=== PATIENT | female | born 1945 | race Caucasian/White ===

== ENCOUNTER → 2018-03-06 09:46 | Outpatient (CLI) | payer MEDICARE, OTHER, SELFPAY ==
[2018-03-06 10:28] LABS: Add Manual Diff / Slide Review NO; Basophils Percent Auto 1.1 % (0-2); Eosinophils Percent Auto 2.5 % (2-4); Hematocrit 40.3 % (36-46); Hemoglobin 13.6 g/dL (12.0-16.0); Lymphocytes Percent Auto 28.6 % (25-40); Mean Corpuscular HGB Conc 33.7 % (30-36); Mean Corpuscular Hemoglobin 29.2 PG (26-34); Mean Corpuscular Volume 86.6 fL (80-100); Monocytes Percent Auto 7.7 % (3-14); Neutrophils Absolute Auto 3100 /uL (3000-5900); Neutrophils Percent Auto 60.1 % (50-75); Platelet Count 193 X10^3/uL (150-400); Red Blood Cell Count 4.65 X10^6/uL (4.0-5.2); Red Cell Distribution Width 13.8 % (11.6-14.8); White Blood Cell Count 5.2 X10^3/uL (4.5-11.0)
[2018-03-06 10:31] LABS: Alanine Aminotransferase 52 IU/L (9-52); Albumin 4.4 g/dL (3.5-5.0); Albumin Globulin Ratio 1.5 (1.0-2.8); Alkaline Phosphatase 89 U/L (38-126); Aspartate Aminotransferase 44 IU/L (14-36); BUN Creatinine Ratio 34.3 (6-22); Bilirubin Total 0.8 mg/dL (0.2-1.3); Blood Urea Nitrogen 24 mg/dL (7-17); Calcium 9.1 mg/dL (8.4-10.2); Carbon Dioxide 28 mmol/L (22-32); Chloride 101 mmol/L (98-107); Cholesterol 167 mg/dL (140-199); Estimated Glomerular Filt Rate > 60.0 mL/min (>60); Glucose 130 mg/dL (80-110); HDL Cholesterol 38 mg/dL (40-60); HEMOLYSIS < 15 (0-50); LDL Cholesterol Calculated 62 mg/dL (<100); Potassium 4.4 mmol/L (3.4-5.1); Sodium 138 mmol/L (137-145); Total Protein 7.4 g/dL (6.3-8.2); Triglycerides 336 mg/dL (35-150)
[2018-03-06 11:02] LABS: Carcinoembryonic Antigen 2.1 ng/mL (0.1-3.0)
[2018-03-07 05:05] LABS: Hemoglobin A1C% w Est Avg Glu 6.3 % (4.0-6.0)
== END ==
PROVIDERS: Visit Provider Internal Medicine Hematology & Oncology
DX: R73.03 Prediabetes (principal); Z85.3 Personal history of malignant neoplasm of breast; Z85.048 Personal history of other malignant neoplasm of rectum, rectosigmoid junction, and anus
CPT/HCPCS: 36415; 80053; 80061; 82378; 83036; 85025

== ENCOUNTER → 2018-03-08 14:30 | Oncology outpatient (ONC) | payer MEDICARE, OTHER, SELFPAY ==
[2018-03-01 13:42] VITALS: BP 133/76; PULSE 71; RESP 16; TEMP 36.7; O2SAT 98
[2018-03-01 13:43] VITALS: BP 134/88; PULSE 67; RESP 18; TEMP 36.2; O2SAT 96
--- NOTE | 2018-03-01 17:22 | ONC.CONS ---
History of Present Illness - Consult Narrative Narrative: 1. Remote history of early stage breast cancer 2. History of rectosigmoid adenocarcinoma Flor Rangel is a 72-year-old woman who recently moved permanently to [place] from [facility]. She has a history of early stage breast cancer in 1996 and more recent history of rectal cancer in 2008. She underwent treatment for both of these in [place], [place], and has not had recurrences. She would like to have a final oncology checkup at our clinic. She had early stage right-sided breast cancer in 1996, treated with right lumpectomy/axillary lymphadenectomy followed by adjuvant chemotherapy and radiotherapy. I do not have pathology from back then. She says she was offered tamoxifen but declined. She never had a breast cancer recurrence. She had screening bilateral mammogram yesterday in [place]. She had ipsilateral right breast biopsy from 10 o'clock periareolar lesion in 11/2012, which was negative for malignancy, and showed densely sclerotic benign breast tissue (post radiation changes). In 2008, she presented with rectal bleeding, and had a colonoscopy (or flex sig), which showed a tubular adenoma at sigmoid and moderately differentiated infiltrating adenocarcinoma at the rectal mass. She underwent low anterior resection of rectosigmoid colon with primary anastomosis on 04/08/2009. Tumor invaded but did not penetrate through muscularis, with 1/10 lymph nodes positive, pathologic stage T2 N1, stage IIIA. Postoperatively, she was given adjuvant 5FU chemoradiotherapy, and remains recurrence free. She indicates most recent surveillance colonoscopy was in 05/2017 and was negative. She was advised to have next colonoscopy in [address] abdomen and pelvis in 11/2015 was negative for evidence of recurrent disease. It showed stable postsurgical changes of distal colon/rectum, and stable hepatic steatosis. CEA was 2.9 in 10/2016. Her past medical history is otherwise unremarkable. It includes prediabetes, overweight, degenerative joint disease, history of migraines but not recently, history of hypertension but recently well controlled. Prior surgeries include right lumpectomy, appendectomy, cholecystectomy, and low anterior resection of rectal tumor. CC: Felicitas Durbin MD Home Medications and Allergies Home Medications Medication Instructions Recorded Confirmed Type ascorbic acid (vitamin C) [Vitamin 1,000 mg PO DAILY 03/01/18 03/01/18 History C] calcium carbonate [Calcium 600] 600 mg PO 03/01/18 History diphenoxylate-atropine 03/01/18 History hydrochlorothiazide 12.5 mg PO DAILY 03/01/18 03/01/18 History levothyroxine 75 mcg PO DAILY 03/01/18 03/01/18 History loperamide 2 mg PO BID 03/01/18 03/01/18 History magnesium 500 mg PO DAILY 03/01/18 03/01/18 History multivitamin 1 cap PO DAILY 03/01/18 03/01/18 History nabumetone 500 mg PO 03/01/18 History pyridoxine (vitamin B6) [Vitamin 250 mg PO DAILY 03/01/18 03/01/18 History B-6] sumatriptan succinate [Imitrex 03/01/18 History STATdose Pen] sumatriptan succinate [Imitrex] 50 mg PO Q2-4H PRN 03/01/18 03/01/18 History vitamin B complex 1 tab PO DAILY 03/01/18 03/01/18 History Allergies Allergy/AdvReac Type Severity Reaction Status Date / Time sesame oil AdvReac Unknown Verified 03/01/18 14:49 sesame seed AdvReac Unknown Verified 03/01/18 14:49 Review of Systems - Patient Self-Reported Symptoms SR Constitution: Fever SR ears, nose, mouth, throat issues: Ears ringing Exam Vital signs: Last Vital Signs Temp 97.1 F L 03/01/18 13:43 Pulse 67 03/01/18 13:43 Resp 18 03/01/18 13:43 BP 134/88 H 03/01/18 13:43 Pulse Ox 96 03/01/18 13:43 - Constitutional positive no acute distress - Routine HEENT Exam Head: Present: atraumatic - Routine Neck Exam Present: supple. Absent: lymphadenopathy, thyromegaly - Routine Chest/Breast/Axilla Exam Breast: Present: induration (Right breast post radiation firmness and deformity, augmented with implant, no concerning mass. Left breast augmented with implant, no palpable mass.) Axillae: Absent: lymphadenopathy - Routine Respiratory Exam Present: Clear to auscultation bilaterally - Routine Cardiovascular Exam Present: RRR - Routine Abdominal Exam Present: soft. Absent: tenderness, mass - Routine Extremities Exam Absent: edema Assessment and Plan (1) History of right breast cancer Current visit: Yes Status: Acute Right-sided breast cancer in 1996, treated with lumpectomy followed by adjuvant chemotherapy and radiotherapy, remains recurrence free. On exam she has post radiation changes of the right breast, without palpable mass. She has bilateral implants in place. Mammogram was done yesterday at [place]. Will follow-up on result. No further oncology follow-up is needed for this remote history. 03/01/18 17:37 03/01/18 17:40 03/01/18 17:40 (2) History of rectal cancer Current visit: Yes Status: Acute History of stage IIIA rectosigmoid adenocarcinoma in 2008, remains recurrence free. Surveillance colonoscopy was reportedly negative in 05/2017 and next one should be in 2021. No need for surveillance CT scans. She will return to clinic next week to review lab results, including CEA. Afterwards, this patient does not need routine oncology follow-up care. 03/01/18 17:38 03/01/18 17:30 03/01/18 17:41
--- NOTE | 2018-03-01 17:33 | P.CONONC_ITS ---
History of Present Illness - Consult Narrative Narrative: 1. Remote history of early stage breast cancer 2. History of rectosigmoid adenocarcinoma Flor Rangel is a 72-year-old woman who recently moved permanently to [place] from [facility]. She has a history of early stage breast cancer in 1996 and more recent history of rectal cancer in 2008. She underwent treatment for both of these in [place], [place], and has not had recurrences. She would like to have a final oncology checkup at our clinic. She had early stage right-sided breast cancer in 1996, treated with right lumpectomy/axillary lymphadenectomy followed by adjuvant chemotherapy and radiotherapy. I do not have pathology from back then. She says she was offered tamoxifen but declined. She never had a breast cancer recurrence. She had screening bilateral mammogram yesterday in [place]. She had ipsilateral right breast biopsy from 10 o'clock periareolar lesion in 11/2012, which was negative for malignancy, and showed densely sclerotic benign breast tissue ( post radiation changes). In 2008, she presented with rectal bleeding, and had a colonoscopy (or flex sig) , which showed a tubular adenoma at sigmoid and moderately differentiated infiltrating adenocarcinoma at the rectal mass. She underwent low anterior resection of rectosigmoid colon with primary anastomosis on 04/08/2009. Tumor invaded but did not penetrate through muscularis, with 1/10 lymph nodes positive , pathologic stage T2 N1, stage IIIA. Postoperatively, she was given adjuvant 5FU chemoradiotherapy, and remains recurrence free. She indicates most recent surveillance colonoscopy was in 05/2017 and was negative. She was advised to have next colonoscopy in [address] abdomen and pelvis in 11/2015 was negative for evidence of recurrent disease. It showed stable postsurgical changes of distal colon/rectum, and stable hepatic steatosis. CEA was 2.9 in . Her past medical history is otherwise unremarkable. It includes prediabetes, overweight, degenerative joint disease, history of migraines but not recently, history of hypertension but recently well controlled. Prior surgeries include right lumpectomy, appendectomy, cholecystectomy, and low anterior resection of rectal tumor. CC: Felicitas Durbin MD Home Medications and Allergies Home Medications Medication Instructions Recorded Confirmed Type ascorbic acid (vitamin C) [Vitamin 1,000 mg PO DAILY 03/01/18 03/01/18 History C] calcium carbonate [Calcium 600] 600 mg PO 03/01/18 History diphenoxylate-atropine 03/01/18 History hydrochlorothiazide 12.5 mg PO DAILY 03/01/18 03/01/18 History levothyroxine 75 mcg PO DAILY 03/01/18 03/01/18 History loperamide 2 mg PO BID 03/01/18 03/01/18 History magnesium 500 mg PO DAILY 03/01/18 03/01/18 History multivitamin 1 cap PO DAILY 03/01/18 03/01/18 History nabumetone 500 mg PO 03/01/18 History pyridoxine (vitamin B6) [Vitamin 250 mg PO DAILY 03/01/18 03/01/18 History B-6] sumatriptan succinate [Imitrex 03/01/18 History STATdose Pen] sumatriptan succinate [Imitrex] 50 mg PO Q2-4H PRN 03/01/18 03/01/18 History vitamin B complex 1 tab PO DAILY 03/01/18 03/01/18 History Allergies Allergy/AdvReac Type Severity Reaction Status Date / Time sesame oil AdvReac Unknown Verified 03/01/18 14:49 sesame seed AdvReac Unknown Verified 03/01/18 14:49 Review of Systems - Patient Self-Reported Symptoms SR Constitution: Fever SR ears, nose, mouth, throat issues: Ears ringing Exam Vital signs: Last Vital Signs Temp 97.1 F L 03/01/18 13:43 Pulse 67 03/01/18 13:43 Resp 18 03/01/18 13:43 BP 134/88 H 03/01/18 13:43 Pulse Ox 96 03/01/18 13:43 - Constitutional positive no acute distress - Routine HEENT Exam Head: Present: atraumatic - Routine Neck Exam Present: supple. Absent: lymphadenopathy, thyromegaly - Routine Chest/Breast/Axilla Exam Breast: Present: induration (Right breast post radiation firmness and deformity , augmented with implant, no concerning mass. Left breast augmented with implant, no palpable mass.) Axillae: Absent: lymphadenopathy - Routine Respiratory Exam Present: Clear to auscultation bilaterally - Routine Cardiovascular Exam Present: RRR - Routine Abdominal Exam Present: soft. Absent: tenderness, mass - Routine Extremities Exam Absent: edema Assessment and Plan (1) History of right breast cancer Current visit: Yes Status: Acute Right-sided breast cancer in 1996, treated with lumpectomy followed by adjuvant chemotherapy and radiotherapy, remains recurrence free. On exam she has post radiation changes of the right breast, without palpable mass. She has bilateral implants in place. Mammogram was done yesterday at [place]. Will follow-up on result. No further oncology follow-up is needed for this remote history. 03/01/18 17:37 03/01/18 17:40 03/01/18 17:40 (2) History of rectal cancer Current visit: Yes Status: Acute History of stage IIIA rectosigmoid adenocarcinoma in 2008, remains recurrence free. Surveillance colonoscopy was reportedly negative in 05/2017 and next one should be in 2021. No need for surveillance CT scans. She will return to clinic next week to review lab results, including CEA. Afterwards, this patient does not need routine oncology follow-up care. 03/01/18 17:38 03/01/18 17:30 03/01/18 17:41
--- NOTE | 2018-03-08 18:09 | ONC.PN ---
Assessment and Plan (1) History of right breast cancer Current visit: Yes Status: Acute 03/08/18 18:15 Remote history of breast cancer in 1996, remains recurrence free. Continue annual screening mammograms. (2) History of rectal cancer Current visit: Yes Status: Acute History of a stage IIIA rectosigmoid adenocarcinoma 2008, remains recurrence free. CEA is normal. Next surveillance colonoscopy should be done in about 05/2022. This patient does not need routine Oncology follow ups, but will be more than happy to see her in future if needed. 03/08/18 18:16 PN -Subjective Interval history: Flor Rangel is a 72-year-old woman who recently moved from [place] to [place], and was seen last week for oncology consultation, regarding history of breast cancer and rectosigmoid adenocarcinoma. Labs were done 2 days ago and she comes today for follow-up. She was diagnosed with early stage right breast cancer in 1996, treated with partial mastectomy/axillary lymphadenectomy, followed by adjuvant chemotherapy and radiotherapy. She was offered tamoxifen but declined. She never had a breast cancer recurrence. She had screening mammogram on 02/28/2018 in [place]. In 2008, she was diagnosed with stage III rectosigmoid adenocarcinoma. She underwent low anterior resection with primary anastomosis in 04/2009, pathologic T2 N1, stage IIIA, 08/16 lymph nodes positive. Postoperatively, she received a course of adjuvant 5 FU chemo radiotherapy, and has never had a recurrence of colon cancer either. Last colonoscopy in 05/2017 [place] was reportedly negative. Last CT abdomen and pelvis in 11/2015 was negative. CEA 2.1 on 03/06/2018. She reports feeling well and has no complaints. - Patient Self-Reported Symptoms SR Constitution: Fever SR ears, nose, mouth, throat issues: Ears ringing Home Medications and Allergies Home Medications Medication Instructions Recorded Confirmed Type ascorbic acid (vitamin C) [Vitamin 1,000 mg PO DAILY 03/01/18 03/01/18 History C] calcium carbonate [Calcium 600] 600 mg PO 03/01/18 History diphenoxylate-atropine 03/01/18 History hydrochlorothiazide 12.5 mg PO DAILY 03/01/18 03/01/18 History levothyroxine 75 mcg PO DAILY 03/01/18 03/01/18 History loperamide 2 mg PO BID 03/01/18 03/01/18 History magnesium 500 mg PO DAILY 03/01/18 03/01/18 History multivitamin 1 cap PO DAILY 03/01/18 03/01/18 History nabumetone 500 mg PO 03/01/18 History pyridoxine (vitamin B6) [Vitamin 250 mg PO DAILY 03/01/18 03/01/18 History B-6] sumatriptan succinate [Imitrex 03/01/18 History STATdose Pen] sumatriptan succinate [Imitrex] 50 mg PO Q2-4H PRN 03/01/18 03/01/18 History vitamin B complex 1 tab PO DAILY 03/01/18 03/01/18 History Allergies Allergy/AdvReac Type Severity Reaction Status Date / Time sesame oil AdvReac Unknown Verified 03/01/18 14:49 sesame seed AdvReac Unknown Verified 03/01/18 14:49 Exam Vital signs: Last Vital Signs Temp 97.1 F L 03/01/18 13:43 Pulse 67 03/01/18 13:43 Resp 18 03/01/18 13:43 BP 134/88 H 03/01/18 13:43 Pulse Ox 96 03/01/18 13:43
[2018-03-13 12:14] VITALS: BP 136/84; PULSE 66; RESP 16; TEMP 37.2; O2SAT 95
== END ==
PROVIDERS: Visit Provider Internal Medicine Hematology & Oncology
DX: Z85.3 Personal history of malignant neoplasm of breast (principal); Z85.048 Personal history of other malignant neoplasm of rectum, rectosigmoid junction, and anus
CPT/HCPCS: 99205; 99213; 99215

== ENCOUNTER 2018-05-16 15:26 | Emergency (ER) | payer MEDICARE, OTHER, SELFPAY ==
[2018-05-16 15:33] VITALS: BP 143/92; PULSE 95; RESP 18; TEMP 36.9; O2SAT 95
--- NOTE | 2018-05-16 16:03 | ED.FEMALEGU ---
HPI - Female Genitourinary General Chief complaint: Urogenital-Female Stated complaint: POSSIBLE KIDNEY STONE Time Seen by Provider: 05/16/18 16:03 Source: patient Mode of arrival: ambulatory Limitations: no limitations History of Present Illness HPI Narrative: 72-year-old female sent from her primary care doctor's office for concerns of a potential kidney stone. Patient which her primary doctor's office today for lower abdominal pain. She states that she has had a urinary tract infection each month for the past 3 months. She went to her doctor's office today and was diagnosed with the urinary tract infection based off of ?bacteria ?that was in the urine sample there. I did not have this for evaluation. She was not given any antibiotics. She was sent here to the emergency department for concerns of her lower abdominal and back pain for concerns of either pyelonephritis or a kidney stone. Patient states that she had some nausea and vomiting earlier today but that has since resolved. Did have a normal bowel movement this morning. No fevers. Does have a history of colon rectal cancer. Has had a partial colectomy with anastomosis but this was done several years ago. She was ?cleared? by her oncologist several months ago. Related Data Home Medications Medication Instructions Recorded Confirmed ascorbic acid (vitamin C) [Vitamin 1,000 mg PO DAILY 03/01/18 05/16/18 C] calcium carbonate [Calcium 600] 600 mg PO QAM 03/01/18 05/16/18 diphenoxylate-atropine 1 cap PO PRN PRN 03/01/18 05/16/18 loperamide 2 mg PO QAM PRN 03/01/18 05/16/18 magnesium 500 mg PO DAILY 03/01/18 05/16/18 multivitamin 1 cap PO DAILY 03/01/18 05/16/18 nabumetone 500 - 1,000 mg PO DAILY 03/01/18 05/16/18 pyridoxine (vitamin B6) [Vitamin 250 mg PO DAILY 03/01/18 05/16/18 B-6] vitamin B complex 1 tab PO DAILY 03/01/18 05/16/18 omeprazole 20 mg PO DAILY 03/13/18 05/16/18 cetirizine [Zyrtec] 10 mg PO DAILY 05/16/18 05/16/18 dicyclomine 10 mg PO TID PRN 05/16/18 05/16/18 levothyroxine 1 tab PO DAILY 05/16/18 05/16/18 sumatriptan succinate 50 mg PO Q2-4H PRN 05/16/18 05/16/18 Allergies Allergy/AdvReac Type Severity Reaction Status Date / Time sesame oil AdvReac Unknown Verified 03/01/18 14:49 sesame seed AdvReac Unknown Verified 03/01/18 14:49 Review of Systems Constitutional Denies fatigue and Denies fever(s) Cardiovascular Denies chest pain and Denies dyspnea Respiratory Denies dyspnea Gastrointestinal Gastrointestinal: Reports abdominal pain, Denies change in bowel habits, Reports nausea and Reports vomiting Genitourinary Denies dysuria, Reports flank pain, Denies urinary incontinence, Denies urinary hesitancy and Denies urinary urgency Musculoskeletal Denies myalgias and Denies arthralgias Integumentary/Breasts Denies lesions and Denies rash Endocrine Denies fatigue Hematologic/Lymphatic Denies easy bleeding and Denies easy bruising PFSH Medical History Colorectal cancer (Acute) Gastroesophageal reflux disease (Acute) Hypothyroid (Acute) Surgical History History of partial colectomy (Acute) Social History Smoking Status: Never smoker Exam Initial Vital Signs Initial Vital Signs: Vital Signs Temperature 98.5 F 05/16/18 15:33 Pulse Rate 95 H 05/16/18 15:33 Respiratory Rate 18 05/16/18 15:33 Blood Pressure 143/92 H 05/16/18 15:33 Pulse Oximetry 95 05/16/18 15:33 Const General: cooperative, healthy appearing, comfortable, well developed, well groomed and No acute distress Orientation: alert and oriented x3 HENWI Head: normal to inspection and normocephalic Resp Effort & Inspection: normal respiratory effort Auscultation: clear to auscultation bilaterally Cardio Rate: regular rate Rhythm: regular rhythm Pulses: radial pulses present GI Inspection: non-distended Palpation: soft, No firm, No guarding, No rigid and No tender Back/Spine/Pelvis Back: No CVA tenderness Skin Lesions: no lesions Rashes: no rashes Neuro General: alert, awake and oriented x3 Extrem General: normal to inspection and capillary refill normal Psych Appearance: grossly normal and well kempt Attitude: cooperative Course Orders Ordered: ED Orders 05/16/18 16:16 CT abdomen pelvis w con Stat 05/16/18 17:05 Complete Blood Count AUTO DIFF Stat Comprehensive Metabolic Panel Stat Lactate (Lactic Acid) Stat Lipase Stat 05/16/18 18:33 Urinalysis and Microscopic Stat Urine Culture Stat Vital Signs - 8 hr 05/16/18 15:33 05/16/18 19:05 Temperature 98.5 F Pulse Rate 95 H 79 Respiratory Rate 18 15 Blood Pressure 143/92 H Blood Pressure [Left Arm] 127/78 Pulse Oximetry 95 95 MDM - Female Genitourinary Lab Data Attestation: I reviewed the patient's lab results. Result diagrams: 05/16/18 17:05 05/16/18 17:05 Lab Results 05/16/18 05/16/18 05/16/18 Range/Units 17:05 17:05 17:05 WBC 13.1 H (4.5-11.0) X10^3/uL RBC 5.00 (4.0-5.2) X10^6/uL Hgb 14.6 (12.0-16.0) g/dL Hct 44.2 (36-46) % MCV 88.3 (80-100) fL MCH 29.2 (26-34) PG MCHC 33.0 (30-36) % RDW 14.4 (11.6-14.8) % Plt Count 214 (150-400) X10^3/uL Neut % (Auto) 88.2 H (50-75) % Lymph % (Auto) 7.8 L (25-40) % [place] % (Auto) 3.4 (3-14) % Eos % (Auto) 0.1 L (2-4) % Baso % (Auto) 0.5 (0-2) % Neut # (Auto) 60502 H (3458-7968) /uL Sodium 141 (137-145) mmol/L Potassium 4.0 (3.4-5.1) mmol/L Chloride 101 (98-107) mmol/L Carbon Dioxide 27 (22-32) mmol/L BUN 22 H (7-17) mg/dL Creatinine 0.70 (0.52-1.04) mg/dL Estimated GFR > 60.0 (>60) mL/min BUN/Creatinine Ratio 31.4 H (6-22) Glucose 149 H (80-110) mg/dL Lactate 1.9 (0.7-2.1) mmol/L Calcium 9.4 (8.4-10.2) mg/dL Total Bilirubin 0.8 (0.2-1.3) mg/dL AST 48 H (14-36) IU/L ALT 55 H (9-52) IU/L Alkaline Phosphatase 107 (38-126) U/L Total Protein 8.0 (6.3-8.2) g/dL Albumin 4.7 (3.5-5.0) g/dL Globulin 3.3 (1.7-4.1) g/dL Albumin/Globulin Ratio 1.4 (1.0-2.8) Lipase 34 (23-300) U/L Urine Color Urine Appearance Urine pH (4.5-8.0) Ur Specific [place] (1.000-1.035) Urine Protein (Negative) Urine Glucose (UA) (Normal) g/dL Urine Ketones (NEGATIVE) Urine Occult Blood (Negative) Urine Nitrate (Negative) Urine Bilirubin (NEGATIVE) Urine Urobilinogen (0.2) E.U./dL Ur Leukocyte Esterase (NEGATIVE) Urine RBC (0-5/HPF) Urine WBC (0-5/HPF) Ur Squamous Epith Cells Urine Bacteria (None) Ur Culture Indicated? Micro UA Comment 05/16/18 Range/Units 18:33 WBC (4.5-11.0) X10^3/uL RBC (4.0-5.2) X10^6/uL Hgb (12.0-16.0) g/dL Hct (36-46) % MCV (80-100) fL MCH (26-34) PG MCHC (30-36) % RDW (11.6-14.8) % Plt Count (150-400) X10^3/uL Neut % (Auto) (50-75) % Lymph % (Auto) (25-40) % [place] % (Auto) (3-14) % Eos % (Auto) (2-4) % Baso % (Auto) (0-2) % Neut # (Auto) (8216-1057) /uL Sodium (137-145) mmol/L Potassium (3.4-5.1) mmol/L Chloride (98-107) mmol/L Carbon Dioxide (22-32) mmol/L BUN (7-17) mg/dL Creatinine (0.52-1.04) mg/dL Estimated GFR (>60) mL/min BUN/Creatinine Ratio (6-22) Glucose (80-110) mg/dL Lactate (0.7-2.1) mmol/L Calcium (8.4-10.2) mg/dL Total Bilirubin (0.2-1.3) mg/dL AST (14-36) IU/L ALT (9-52) IU/L Alkaline Phosphatase (38-126) U/L Total Protein (6.3-8.2) g/dL Albumin (3.5-5.0) g/dL Globulin (1.7-4.1) g/dL Albumin/Globulin Ratio (1.0-2.8) Lipase (23-300) U/L Urine Color Yellow Urine Appearance Clear Urine pH 7.0 (4.5-8.0) Ur Specific [place] <=1.005 (1.000-1.035) Urine Protein Negative (Negative) Urine Glucose (UA) Negative (Normal) g/dL Urine Ketones Negative (NEGATIVE) Urine Occult Blood Trace-intact (Negative) Urine Nitrate Negative (Negative) Urine Bilirubin Negative (NEGATIVE) Urine Urobilinogen 0.2 (0.2) E.U./dL Ur Leukocyte Esterase Negative (NEGATIVE) Urine RBC 0-1/hpf (0-5/HPF) Urine WBC None seen (0-5/HPF) Ur Squamous Epith Cells 0-1 /hpf Urine Bacteria None seen (None) Ur Culture Indicated? Cult not indicated Micro UA Comment Not Reportable Imaging Data CT scan - abdomen: Radiologist's impression: [place] [address] CT Scan Report Signed Patient: Flor Rangel [facility]#: [id number] : 6Acct:[id number] Age/Sex: 72 / FDate of Service: 05/16/18 Loc: ED Accession Number: [id number] Procedure: CT abdomen pelvis w con Ordering Provider: Hua Sena D.O. PROCEDURE: CT ABDOMEN PELVIS W CON INDICATIONS: Left-sided abdominal pain TECHNIQUE: After the administration of intravenous contrast, 5 mm thick sections acquired from the diaphragm to the symphysis. 5 mm coronal and sagittal reformats were acquired. For radiation dose reduction, the following was used: automated exposure control, adjustment of mA and/or kV according to patient size. COMPARISON: None. FINDINGS: Image quality: Excellent. ABDOMEN: Lung bases: Lung bases are clear. Heart size is normal. Solid organs: Liver is diffusely hypodense suggesting fatty infiltration. Gallbladder is surgically absent. Biliary system is non dilated. Pancreas enhances normally. Spleen is normal in size and enhancement. No adrenal nodules. Kidneys demonstrate normal size and enhancement, without hydronephrosis. Peritoneum and bowel: Stomach is partially fluid filled. The proximal small bowel demonstrates normal caliber and wall thickness. The midportion of the small bowel is moderately dilated and filled with fluid and gas. There is likely a proximal transition point present near the umbilicus (series 2, image 52, and series 4, image 16), and a distal transition point within the pelvis (series 2, image 66 and series 4, image 49). The more distal ileum appears decompressed. The terminal ileum is dilated and filled with liquid stool. No mucosal thickening. The colon is filled with stool. Anastomotic sutures present in the rectosigmoid region. No free fluid or air. The appendix is not visualized; however there is no discrete right lower quadrant fluid or fat stranding to suggest acute appendicitis. Nodes and vessels: No retroperitoneal or mesenteric adenopathy by size criteria. Aorta and inferior vena cava are normal in size. There are scattered atheromatous calcifications throughout the aorta and iliac arteries bilaterally. Miscellaneous: There is diastasis of the rectus abdominis musculature. PELVIS: Genitourinary: Bladder wall thickness is normal. Uterus and ovaries are grossly unremarkable. Miscellaneous: No inguinal hernias or adenopathy. Bones: No suspicious bony lesions. No vertebral body compression fractures. IMPRESSION: 1. Dilated loops of small bowel within the lower abdomen suspicious for partial obstruction or ileus. Given a probable proximal and distal transition point, closed loop obstruction should be considered in the differential diagnosis. No mucosal thickening to suggest bowel ischemia. 2. The appendix is not visualized; however there are no ancillary findings to suggest acute appendicitis. These findings were discussed with Dr. Sena at 6:33 PM on 05/16/18. Dictated by: Emani Ramirez M.D. on 05/16/2018 at 18:20 Approved by: Emani Ramirez M.D. on 05/16/2018 at 18:33 MDM Narrative Medical decision making narrative: Patient is nontoxic appearing. Has a benign abdominal exam here in the emergency department. Is nontender. Has no rebound or guarding. Did tolerate oral intake here in the ER prior to the CT scan. She states she is feeling much better since arriving here in the ER. She states that her abdominal pain and back pain that she had earlier has greatly improved. She did have a bowel movement this morning. Is no longer nauseous. Does have an elevated white blood cell count however no signs of an infection. Her lactate is 1.9. She is afebrile. This could be demargination from vomiting. CT scan call from the radiologist is concerning for a closed loop bowel obstruction. The CT scan was done without oral contrast. The patient's physical exam is not consistent with a bowel obstruction. She has a very soft abdomen and is not vomiting. I discussed the case with Dr. Kinney with General surgery who states that if the patient is that asymptomatic and has a benign abdominal exam that we could admit her here to hospital this evening for further evaluation or she could be discharged home and follow up in the next couple days in the surgery clinic. After discussion with the patient she opted to be discharged home. I feel that given her clinical picture that this is not unreasonable. The patient was given follow-up instructions with regard to General surgery and the phone numbers to call. She was also given strict return precautions to include fevers, worsening abdominal pain, vomiting, unable to have bowel movements. Patient's urine sample today is not consistent with a urinary tract infection. The urine was cultured today. I feel that given her lack of urinary symptoms and the fact that she has been on antibiotics every month for the past 3 month and the non definitive urinalysis today that holding on antibiotics to prevent complication of her abdominal symptoms and also the prevention is C diff is warranted. Her exam today is not consistent with pyelonephritis. It is not consistent with kidney stone. I discussed this with the patient and she agrees with this. Patient expressed understanding and agreement with plan. Discharge Plan Departure Patient Disposition: Home Clinical Impression: Abdominal pain Instructions: DI for Abdominal Pain-Adult Activity Restrictions/Additional Instructions: I recommend that tomorrow you contact the [facility] at [phone]. I discussed her case today with Dr. Kinney. If you develop worsening abdominal pain, fevers, inability to tolerate oral intake or loss of the ability to have bowel movements you do need to return to the emergency department for further evaluation. Continue all of your medications as directed. Prescriptions: No Action nabumetone 500 mg Tablet 500 - 1,000 mg PO DAILY RF: 0 ascorbic acid (vitamin C) [Vitamin C] 1,000 mg Tablet 1,000 mg PO DAILY RF: 0 loperamide 2 mg Capsule 2 mg PO QAM PRN (Reason: Diarrhea) RF: 0 diphenoxylate-atropine 2.5-0.025 mg Tablet 1 cap PO PRN PRN (Reason: Diarrhea) RF: 0 calcium carbonate [Calcium 600] 600 mg calcium (1,500 mg) Tablet 600 mg PO QAM RF: 0 vitamin B complex Tablet 1 tab PO DAILY RF: 0 magnesium 250 mg Tablet 500 mg PO DAILY RF: 0 multivitamin Capsule 1 cap PO DAILY RF: 0 pyridoxine (vitamin B6) [Vitamin B-6] 250 mg Tablet 250 mg PO DAILY RF: 0 omeprazole 20 mg Tablet,Delayed Release (Dr/Ec) 20 mg PO DAILY RF: 0 levothyroxine 100 mcg tablet 1 tab PO DAILY RF: 0 cetirizine [Zyrtec] 10 mg Tablet 10 mg PO DAILY RF: 0 sumatriptan succinate 50 mg Tablet 50 mg PO Q2-4H PRN (Reason: Migraine Headache) RF: 0 dicyclomine 10 mg Capsule 10 mg PO TID PRN (Reason: cramping) RF: 0
--- NOTE | 2018-05-16 16:16 | DI.CT.S_ITS ---
PROCEDURE: CT ABDOMEN PELVIS W CON INDICATIONS: Left-sided abdominal pain TECHNIQUE: After the administration of intravenous contrast, 5 mm thick sections acquired from the diaphragm to the symphysis. 5 mm coronal and sagittal reformats were acquired. For radiation dose reduction, the following was used: automated exposure control, adjustment of mA and/or kV according to patient size. COMPARISON: None. FINDINGS: Image quality: Excellent. ABDOMEN: Lung bases: Lung bases are clear. Heart size is normal. Solid organs: Liver is diffusely hypodense suggesting fatty infiltration. Gallbladder is surgically absent. Biliary system is non dilated. Pancreas enhances normally. Spleen is normal in size and enhancement. No adrenal nodules. Kidneys demonstrate normal size and enhancement, without hydronephrosis. Peritoneum and bowel: Stomach is partially fluid filled. The proximal small bowel demonstrates normal caliber and wall thickness. The midportion of the small bowel is moderately dilated and filled with fluid and gas. There is likely a proximal transition point present near the umbilicus (series 2, image 52, and series 4, image 16), and a distal transition point within the pelvis (series 2, image 66 and series 4, image 49). The more distal ileum appears decompressed. The terminal ileum is dilated and filled with liquid stool. No mucosal thickening. The colon is filled with stool. Anastomotic sutures present in the rectosigmoid region. No free fluid or air. The appendix is not visualized; however there is no discrete right lower quadrant fluid or fat stranding to suggest acute appendicitis. Nodes and vessels: No retroperitoneal or mesenteric adenopathy by size criteria. Aorta and inferior vena cava are normal in size. There are scattered atheromatous calcifications throughout the aorta and iliac arteries bilaterally. Miscellaneous: There is diastasis of the rectus abdominis musculature. PELVIS: Genitourinary: Bladder wall thickness is normal. Uterus and ovaries are grossly unremarkable. Miscellaneous: No inguinal hernias or adenopathy. Bones: No suspicious bony lesions. No vertebral body compression fractures. IMPRESSION: 1. Dilated loops of small bowel within the lower abdomen suspicious for partial obstruction or ileus. Given a probable proximal and distal transition point, closed loop obstruction should be considered in the differential diagnosis. No mucosal thickening to suggest bowel ischemia. 2. The appendix is not visualized; however there are no ancillary findings to suggest acute appendicitis. These findings were discussed with Dr. Sena at 6:33 PM on 05/16/18. Dictated by: Emani Ramirez M.D. on 05/16/2018 at 18:20 Approved by: Emani Ramirez M.D. on 05/16/2018 at 18:33
[2018-05-16 17:22] LABS: Add Manual Diff / Slide Review NO; Basophils Percent Auto 0.5 % (0-2); Eosinophils Percent Auto 0.1 % (2-4); Hematocrit 44.2 % (36-46); Hemoglobin 14.6 g/dL (12.0-16.0); Lymphocytes Percent Auto 7.8 % (25-40); Mean Corpuscular Hemoglobin 29.2 PG (26-34); Mean Corpuscular Volume 88.3 fL (80-100); Monocytes Percent Auto 3.4 % (3-14); Neutrophils Absolute Auto 11500 /uL (3000-5900); Neutrophils Percent Auto 88.2 % (50-75); Platelet Count 214 X10^3/uL (150-400); Red Cell Distribution Width 14.4 % (11.6-14.8); White Blood Cell Count 13.1 X10^3/uL (4.5-11.0)
[2018-05-16 17:39] LABS: Alanine Aminotransferase 55 IU/L (9-52); Albumin 4.7 g/dL (3.5-5.0); Albumin Globulin Ratio 1.4 (1.0-2.8); Alkaline Phosphatase 107 U/L (38-126); Aspartate Aminotransferase 48 IU/L (14-36); BUN Creatinine Ratio 31.4 (6-22); Bilirubin Total 0.8 mg/dL (0.2-1.3); Blood Urea Nitrogen 22 mg/dL (7-17); Calcium 9.4 mg/dL (8.4-10.2); Carbon Dioxide 27 mmol/L (22-32); Chloride 101 mmol/L (98-107); Estimated Glomerular Filt Rate > 60.0 mL/min (>60); Globulin 3.3 g/dL (1.7-4.1); Glucose 149 mg/dL (80-110); HEMOLYSIS < 15 (0-50); Lipase 34 U/L (23-300); Sodium 141 mmol/L (137-145)
[2018-05-16 17:41] LABS: Lactate (Lactic Acid) 1.9 mmol/L (0.7-2.1)
[2018-05-16 18:39] LABS: Bacteria Urine None Seen; WBC Urine None Seen (0-5/HPF)
[2018-05-16 18:40] LABS: Appearance Urine UA CLEAR; Bilirubin Urine UA NEGATIVE (NEGATIVE); Color Urine UA YELLOW; Glucose Urine UA NEGATIVE (Normal); Ketones Urine UA NEGATIVE (NEGATIVE); Leukocyte Esterase Urine UA NEGATIVE (NEGATIVE); Nitrite Urine UA Negative (Negative); Occult Blood Urine UA TRACE-INTACT (Negative); Protein Urine UA NEGATIVE (Negative); Specific Gravity Urine UA <=1.005 (1.000-1.035); Urobilinogen Urine UA 0.2 E.U./dL (0.2)
[2018-05-16 19:02] LABS: RBC Urine 0-1/HPF (0-5/HPF)
[2018-05-16 19:03] LABS: Culture Indicated Urine Cult Not Indicated; Squamous Epithelial Cell Urine 0-1 /HPF
[2018-05-16 19:05] VITALS: BP 127/78; PULSE 79; RESP 15; O2SAT 95
[2018-05-16 20:01] VITALS: BP 128/82; PULSE 80; RESP 19; TEMP 36.6; O2SAT 95
== END 2018-05-16 20:02 | disposition home or self-care (01) ==
PROVIDERS: Emergency Provider Emergency Medicine; Family Provider Physician Assistant; PCP Physician Assistant
DX: R10.9 Unspecified abdominal pain (principal)
CPT/HCPCS: 36591; 74177; 80053; 81001; 83605; 83690; 85025; 87086; 99282; 99285; Q9967

== ENCOUNTER 2018-08-10 08:06 | Day surgery (SDC) | payer MEDICARE, OTHER, SELFPAY ==
[2018-08-08 12:15] VITALS: BMI 34.4
[2018-08-10] VITALS (9 sets, daily range): BP systolic 125–161; BP diastolic 75–95; PULSE 54–85; RESP 10–18; TEMP 36.1–36.9; O2SAT 91–97; BMI 34.4
--- NOTE | 2018-08-10 | DI.US.S_ITS ---
PROCEDURE: US PELVIC COMPLETE INDICATIONS: UNSUCESSFUL ATTEMPT OF D AND C IN THE OR TECHNIQUE: Real-time scanning was performed of the pelvic organs, with image documentation. Additional endovaginal scanning was necessary due to incomplete visualization of the adnexal and endometrial structures by transabdominal scanning. COMPARISON: [facility], US, US PELVIC COMPLETE, 07/10/2018, 12:50. [facility], CT, CT ABDOMEN PELVIS W CON, 05/16/2018, 17:47. FINDINGS: Transabdominal scanning: Limited scanning through the kidneys shows no hydronephrosis. No pathologic free abdominal or pelvic fluid. Endovaginal scanning: Uterus: Uterus is normal in size at 6.2 x 3.4 x 3.9 cm. The endometrium measures 3 mm in combined thickness. Along the anterior wall of the uterus, there is an ovoid isoechoic structure with a peripheral area of decreased echogenicity that measures 1.2 x 1.0 x 1.3 cm and demonstrates a single source of the vascularity extending into this region. The structure exerts mass effect on the adjacent endometrium. No additional abnormalities of the uterus are evident. The cervix is unremarkable. Ovaries: The right ovary is not definitely seen. No right adnexal abnormality is identified. The left ovary measures 1.8 x 1.5 x 2.1 cm and is normal in size without cystic or solid mass. Left ovarian follicle is identified that measures up to 1.3 cm in diameter. IMPRESSION: 1. Endometrial polyp versus submucosal fibroid is noted to exert mass effect on the endometrium. A saline infusion hysterosonogram would be helpful for better characterization. 2. Unremarkable left ovary. The right ovary was not definitely seen. Dictated by: Marbin Goldberg M.D. on 08/10/2018 at 10:52 Approved by: Marbin Goldberg M.D. on 08/10/2018 at 11:16
--- NOTE | 2018-08-10 | PATH_ITS ---
[facility] Accession Number: [id number] . 01 Material submitted: . ENDOCERVICAL CURETTINGS . 02 Diagnosis: Endocervical Curettings: Superficial, detached fragments of atypical glandular cells; please see comment. MRV/08/16/2018 . 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 However, there is no stroma to assess for invasion or for definitive architectural features. . This case was reviewed by gynecologic pathologist, Dr. Shaina Stoddard, who prvided the interpretation. . 02 Electronically signed: . Carlota Soria MD, Pathologist NPI- [id number] . 01 Gross description: . Received one formalin-filled container labeled with the patient's name and labeled endocervical curettings. The specimen consists of a less than 0.25 cc aggregate of mucoid material and blood, which is filtered, wrapped, and entirely submitted in one cassette. ([id number]) /FRR . 02 Pathologist provided ICD-10: N85.00 . 02 CPT . 173266 Performed at: 01 [facility] [address], [place], [place] [id number] MD Jaden Cadena MD Phone: [phone] Performed at: 02 [facility] [address] [place], [place] [id number] MD Deepthi Good MD Phone: [phone]
--- NOTE | 2018-08-10 08:45 | PM.PREOP ---
Pre-operative Note Interval Note History & Physical reviewed/Exam performed by Physician: Yes Changes to H&P: No
[2018-08-10] MEDS: LACTATED RINGERS 1,000 ML 42 ML IV (08:50)
--- NOTE | 2018-08-10 09:08 | PM.HP.1 ---
History of Present Illness Date Patient Seen: 08/10/18 Time Patient Seen: 09:08 Chief complaint: d&c hysteroscopy [id number] Narrative: Patient is a 73-year-old with postmenopausal bleeding and MACARENA on PAP. Patient had a biopsy of the cervix which showed adenocarcinoma but was unclear if it was coming from the endocervix or the endometrium. She had cervical stenosis and definitive biopsies were difficult in the office. She presents today for a fractional D&C hysteroscopy Patient History Medical History Colorectal cancer (Acute) DJD (degenerative joint disease) (Acute) Gastroesophageal reflux disease (Acute) Hepatic steatosis (Acute) History of migraine (Acute) Hypothyroid (Acute) Overweight (Acute) Prediabetes (Acute) Surgical History History of appendectomy (Acute) History of cholecystectomy (Acute) History of colonoscopy (Acute) History of partial colectomy (Acute ~04/08/09) Status post right breast lumpectomy (Acute ~1996) Family & Social History Social History: household members spouse Tobacco & Substance use: Smoking Status Never smoker alcohol intake frequency holiday/special occasion Substance Use Type does not use Meds Home Medications Medication Instructions Recorded Confirmed Type ascorbic acid (vitamin C) [Vitamin 1,000 mg PO DAILY 03/01/18 08/10/18 History C] calcium carbonate [Calcium 600] 600 mg PO QAM 03/01/18 08/10/18 History diphenoxylate-atropine 1 cap PO PRN PRN 03/01/18 08/10/18 History loperamide 2 mg PO QAM PRN 03/01/18 08/10/18 History magnesium 500 mg PO DAILY 03/01/18 08/10/18 History multivitamin 1 cap PO DAILY 03/01/18 08/10/18 History nabumetone 500 - 1,000 mg PO DAILY 03/01/18 08/10/18 History pyridoxine (vitamin B6) [Vitamin 250 mg PO DAILY 03/01/18 08/10/18 History B-6] vitamin B complex 1 tab PO DAILY 03/01/18 08/10/18 History omeprazole 20 mg PO DAILY 03/13/18 08/10/18 History cetirizine [Zyrtec] 10 mg PO DAILY 05/16/18 08/10/18 History dicyclomine 10 mg PO TID PRN 05/16/18 08/10/18 History levothyroxine 1 tab PO DAILY 05/16/18 08/10/18 History sumatriptan succinate 50 mg PO Q2-4H PRN 05/16/18 08/10/18 History multivitamin 1 tab PO DAILY 08/08/18 08/10/18 History Allergies Allergy/AdvReac Type Severity Reaction Status Date / Time sesame oil AdvReac Mild Verified 08/10/18 08:29 sesame seed AdvReac Mild Verified 08/10/18 08:29 Exam Vital Signs (past 8 hours): - 08/10/18 08:31 Temperature 97.1 F L Pulse Rate 71 Respiratory Rate 15 Blood Pressure 149/90 H Pulse Oximetry 94 Oxygen Delivery Method Room Air Narrative Exam Narrative: HEENT: No thyromegaly, no anterior cervical or supraclavicular lymphadenopathy. Lungs:Clear to auscultation bilaterally, no wheezes. Cardiovascular: Regular rate and rhythm, no murmurs, rubs, or gallops. Abdomen: No scars. No hepatosplenomegaly. No masses palpable. External genitalia: Normal Vagina: Small amount of blood Cervix: Stenotic Bimanual exam: 6 Week size uterus. Mobile. Rectal: No masses. Assessment & Plan (1) Postmenopausal postcoital bleeding: Current visit: Yes Status: Acute (2) Cervical stenosis (uterine cervix): Current visit: Yes Status: Acute (3) Adenocarcinoma: Current visit: Yes Status: Acute Plan: Assessment/Plan Narrative: Assessment: Patient is a 73-year-old with MACARENA on Pap, postmenopausal bleeding, and cervical stenosis Cervical biopsy in the office suspicious for adenocarcinoma but unknown origin Plan: Fractional D&C The risks, benefits, and alternatives to the procedure were explained to the patient. The risks including bleeding, infection, and uterine perforation. She understands these risks and agrees to proceed. A full PAR-Q was held and consent form was signed.
--- NOTE | 2018-08-10 09:22 | SUR.OPER ---
Lithotomy on padded OR bed, head on pillow, arms secured on padded arm boards at <90 degrees abduction. Legs secured in padded yellow fins stirrups.
--- NOTE | 2018-08-10 10:27 | SUR.PHASEII ---
Dr. Hansen into see pt and she ordered an ultra sound . Will call and see if it can be done. If it can not Dr. Hansen will do the ultra sound after she is done with surgery. Patient is aware of this and is agreement to plan of care. pt sitting up with tea. No complaints voiced.
--- NOTE | 2018-08-10 10:53 | SUR.PHASEII ---
Pt getting ultra sound at present time. Will ask Dr. Hansen if she needs pt to stay for results.
--- NOTE | 2018-09-03 08:02 | P.OP_ITS ---
Operative Date/Time/Diagnoses Date of procedure: 08/10/18 Time of procedure: 10:00 Pre-op diagnosis: Adenocarcinoma of either the cervix or uterus by biopsy Postmenopausal bleeding Cervical stenosis MACARENA on PAP Post-op diagnosis: same Procedure: Procedures Operation Date: 08/10/18 09:15 Actual Procedures Side Surgeon uzair Hansen MD Indications: Adenocarcinoma of the cervix or uterus by biopsy Postmenopausal bleeding Cervical stenosis MACARENA on PAP Surgeon: Gayle Hansen Anesthesia Type: General (LMA) Operative Notes Findings: 6 week size uterus Cervical stenosis Closure Type: not applicable Specimen(s): other (Endocervical curettings) Estimated blood loss (mL): 10 Blood products transfused: none Procedure in detail: After informed consent was obtained, patient was taken to the operating room where she was placed in the dorsal supine position. After adequate LMA general anesthesia was achieved, she was placed in the dorsal lithotomy position, and prepped and draped in the usual sterile fashion. A time- out was performed. A bivalve speculum was placed into the vagina, and the anterior lip of the cervix grasped with a single-tooth tenaculum. Using the small gold handle dilators, an attempt was made to dilate the cervix but was unable. A vigorous endocervical curettage was performed. Endometrial curettings were not able to be obtained. The single-tooth tenaculum was removed from the anterior lip of the cervix. The bivalve speculum was removed from the vagina. Sponge, lap, and instrument counts were correct x2. The patient tolerated the procedure well, and was taken to PACU in stable condition. Complications: none Post-operative Condition: stable Disposition: PACU Plan for aftercare: Home after recovery
== END 2018-08-10 11:22 | disposition home or self-care (01) ==
PROVIDERS: PCP Physician Assistant; Visit Provider Obstetrics & Gynecology
PROC: 0UDB8ZZ Extraction of Endometrium, Via Natural or Artificial Opening Endoscopic (ICD-10-PCS; CPT 58558; principal; 2018-08-10 09:15)
DX: N85.00 Endometrial hyperplasia, unspecified (principal); N88.2 Stricture and stenosis of cervix uteri; C80.1 Malignant (primary) neoplasm, unspecified; E03.9 Hypothyroidism, unspecified
CPT/HCPCS: 57505; 76830; 76856; 88305; J1100; J2250; J2405; J2704; J3010

== ENCOUNTER → 2020-08-13 14:54 | Outpatient (CLI) | payer MEDICARE, OTHER, SELFPAY ==
[2020-08-13 16:44] LABS: Cancer Antigen 125 < 5.5 U/mL (0-35)
== END ==
PROVIDERS: PCP Internal Medicine; Referring Provider Obstetrics & Gynecology; Visit Provider Obstetrics & Gynecology
DX: C55 Malignant neoplasm of uterus, part unspecified (principal); C80.1 Malignant (primary) neoplasm, unspecified
CPT/HCPCS: 36415; 86304

== ENCOUNTER → 2020-08-28 10:20 | Outpatient (CLI) | payer MEDICARE, OTHER, SELFPAY ==
[2020-08-28 11:10] LABS: COVID19 -Nasal RAPID Negative (Negative)
== END ==
PROVIDERS: PCP Internal Medicine; Visit Provider Specialist
DX: Z20.822 Contact with and (suspected) exposure to COVID-19 (principal)
CPT/HCPCS: 87635; C9803

== ENCOUNTER 2020-08-31 06:32 | Day surgery (SDC) | payer MEDICARE, OTHER, SELFPAY ==
[2020-08-31] VITALS (14 sets, daily range): BP systolic 118–140; BP diastolic 65–85; PULSE 59–77; RESP 10–17; TEMP 36.1–37; O2SAT 90–98; BMI 31.6
--- NOTE | 2020-08-31 | PATH_ITS ---
[facility] Accession Number: [id number] . 01 Material submitted: . abdomen - SKIN AND PERITONEUM OVER ABDOMINAL WALL HERNIA . 01 Diagnosis: Skin and Peritoneum, Over Abdominal Wall Hernia, Excision: Skin and subcutis with peritoneal tissue showing old hemorrhage, fibroplasia, chronic inflammation, and mild mesothelial hyperplasia. Negative for malignancy. MRV 09/02/2020 1510 Local . 01 Electronically signed: . Kourtney Ashraf MD, Pathologist NPI- [id number] . 01 Gross description: . The specimen is received in formalin, labeled skin and peritoneum over abdominal wall hernia and consists of multiple rueda-pink to pink-purple fragments of soft tissue and rueda skin measuring 10.0 x 7.5 x 4.0 cm in aggregate. Boiler Coverer Helper sections are submitted in cassettes A1-A2. ([id number]) /MRV 09/01/2020 1040 Local . 01 Pathologist provided ICD-10: K43.2 . 01 CPT . 978276 Performed at: 01 [facility] [address] [place] [address], [place], [place] [id number] MD Jaden Cadena MD Phone: [phone]
[2020-08-31] MEDS: ACETAMINOPHEN 325 MG TABLET 975 MG PO (07:28)
[2020-08-31] MEDS: LACTATED RINGERS 1,000 ML 42 ML IV ×2 (07:38→10:20)
--- NOTE | 2020-08-31 07:39 | PM.PREOP ---
Pre-operative Note COVID-19 COVID-19 status: Negative Result date/Date tested (Pos, Neg/Pending): 08/28/20 Interval Note History & Physical reviewed/Exam performed by Physician: Yes Changes to H&P: Yes H&P completed within 30 days and has changed as indicated here:: Patient has a history of seroma formation. Patient also had her uterine cancer treated in 2019, not 2018.
[2020-08-31] MEDS: CEFAZOLIN 2 GM/100 ML FROZ.PIGGY IV (08:05)
--- NOTE | 2020-08-31 08:07 | PM.OP.ENDO ---
Operative Date/Time/Diagnoses Date of procedure: 08/31/20 Time of procedure: 08:07 Pre-op diagnosis: dysphagia Post-op diagnosis: other (oral candidiasis) Procedure & Clinicians Study performed: Esophagoduodenoscopy Same procedure as scheduled: Yes Indications: 75-year-old man with dysphagia presents for EGD Surgeon: Gómez Lim Procedure Notes Findings: other findings (Oral candidiasis) Specimen(s): other (Duodenum) Complications: none Impression: Oral candidiasis Post-procedure Recommendations: Start medication(s) (Nystatin) Disposition: same day surgery
--- NOTE | 2020-08-31 08:20 | SUR.OPER ---
Supine on padded OR bed, head on pillow, arms secured on padded arm boards at <90 degrees abduction, legs uncrossed, safety belt at thigh, tape over blanket over lower legs.
[2020-08-31] MEDS: BUPIVACAINE 0.5% (PF) VIAL 30 ML INJ (08:25)
--- NOTE | 2020-08-31 11:15 | SUR.OPER ---
Sebas Edouard relief at 1115 to end of case
[2020-08-31] MEDS: fentaNYL 100 MCG/2 ML INJ IV ×3 (11:54→12:08)
--- NOTE | 2020-08-31 11:59 | SUR.PHASEI ---
Pt arrived, oral airway needed for patency, out now w/o incident. Pt not nauseated, c/o pain medicated with fentanyl and oxycodone.
--- NOTE | 2020-08-31 11:59 | SUR.PHASEI ---
O2 nasal cannula weaning down.
--- NOTE | 2020-08-31 12:01 | PM.OP.1 ---
Operative Date/Time/Diagnoses Date of procedure: 08/31/20 Time of procedure: 11:29 Pre-op diagnosis: Incisional ventral hernia. Post-op diagnosis: same Procedure & Clinicians Procedure: Repair with underlay and overlay of mesh. Same procedure as scheduled: Yes Indications: Symptomatic hernia for repair Surgeon: Fady Ricci Click Yes if Unassisted: Yes Anesthesia Type: General Operative Notes Findings: Large defect. Placed a 12 by 7.5 cm piece of oval mesh under the wound and a 3 x 6 in piece of mesh over it. Closure Type: primary Specimen(s): other (Due to her prior malignancies I did send her hernia sac.) Prosthetic devices, grafts, tissues, transplants, or devices: Mesh Estimated Blood Loss (mL): 150 Blood products transfused: none Procedure in detail: The patient is placed supine on the operating room table and underwent general endotracheal anesthesia. She was prepped and draped in the usual fashion. Elliptical incision was made over top of this hernia which included excision of the umbilicus. All of the skin was quite attenuated due to the large size of the hernia sac which protruded well out from the abdominal wall. I dissected the sac away from the subcu fat down the level the fascia. I incised the fascia at its edge. This proved more difficult than usual because the fascia itself while intact was attenuated. There also places probably because of her multiple incisions through this area where I could not separate the peritoneum from the overlying fascia and muscle. In any event I removed portions of the sac. I was able to dissect peritoneum off the abdominal wall in such a fashion that I could close the peritoneum. The fascial edges were cleared and a oval piece of 2 sided parietex mesh was placed under the fascia. U stitches were placed down through the overlying fascia down through mesh back up through mesh in up through fascia circumferentially. The material use was never 1 as a bone. The sutures were tied to snug the mesh up to the anterior abdominal wall. I then closed the midline with figure of 8 0 Ethibond sutures. Five to light waist piece of mesh overlying the fat tacked it down with interrupted 0 Ethibond sutures. 87 mm Saul-Cummings drain was placed through an inferior lateral stab wound. This was secured with a 3-0 nylon. The subQ was closed with interrupted 3-0 Vicryl and skin was closed a running 4-0 Vicryl subcuticular stitch and Steri-Strips. Skin protectant was placed on the skin prior to placing the Steri-Strips. Local anesthetic was infiltrated prior to closure of the skin layer. Complications: none Post-operative Condition: stable Disposition: PACU
[2020-08-31] MEDS: OXYCODONE IR 5 MG TABLET PO ×2 (12:09→13:05)
[2020-08-31] MEDS: LORazepam 2 MG/ML INJ 0.5 MG IV (13:38)
--- NOTE | 2020-08-31 13:38 | SUR.PHASEII ---
ABDOMINAL DRESSING DRY AND INTACT, VLADIMIR PATENT AND COMPRESSED, ABDOMINAL BINDER ON, ICE TO ABDOMEN MEDICATED FOR IM JUST SO ANXIOUS DENIED PAIN BUT STATES SHE JUST UNCOMFORTABLE TOLERATING SIPS OF WATER.
== END 2020-08-31 14:10 | disposition home or self-care (01) ==
PROVIDERS: PCP Internal Medicine; Referring Provider Obstetrics & Gynecology; Visit Provider Specialist
PROC: (CPT 49560; principal; 2020-08-31 07:45)
DX: K43.2 Incisional hernia without obstruction or gangrene (principal); F41.9 Anxiety disorder, unspecified; F32.9 Major depressive disorder, single episode, unspecified; E03.9 Hypothyroidism, unspecified; Z85.3 Personal history of malignant neoplasm of breast; Z85.42 Personal history of malignant neoplasm of other parts of uterus; Z85.048 Personal history of other malignant neoplasm of rectum, rectosigmoid junction, and anus
CPT/HCPCS: 49560; 49568; C1781; J0330; J0690; J1100; J2060; J2250; J2405; J2704; J3010

== ENCOUNTER → 2020-10-13 07:31 | Outpatient (CLI) | payer MEDICARE, OTHER, SELFPAY ==
--- NOTE | 2020-10-13 | DI.NM.S_ITS ---
PROCEDURE: NM BONE 3 PHASE RADIOPHARMACEUTICAL: 18.8 mCi Tc-99m MDP IV. INDICATIONS: Pain in right foot TECHNIQUE: Multiple bone scintigrams were obtained after intravenous injection of Tc-99m MDP, including flow, blood pool, and delayed images centered to the region of interest. COMPARISON: [facility] Outside Film, CR, XR FOOT 3+ VIEWS RIGHT, 08/25/2020, 13:26. FINDINGS: A triple phase bone scan was obtained centered to the ankles and feet. The flow and blood pool images demonstrate increased uptake in the right foot compared to the left foot with more intense uptake projecting to the base of the 1st metatarsal. Delayed images demonstrate increased activity at the base of the 1st metatarsal. There is mildly increased periarticular activity increased activity at right ankle and 1st metatarsophalangeal joints bilaterally. IMPRESSION: 1. Increased activity on flow, blood pool and delayed images at the base of the 1st metatarsal, suggesting infection or inflammatory arthritis. The comparison x-ray on 08/25/2020 showed no lytic bone lesion or periosteal reaction. If clinically indicated, repeat x-ray is recommended. 2. Degenerative joint disease bilaterally. Dictated by: Fernanda Hicks M.D. on 10/13/2020 at 14:03 Approved by: Fernanda Hicks M.D. on 10/13/2020 at 17:39
== END ==
PROVIDERS: PCP Internal Medicine; Referring Provider Podiatrist; Visit Provider Podiatrist
DX: M79.671 Pain in right foot (principal); M19.072 Primary osteoarthritis, left ankle and foot; M19.071 Primary osteoarthritis, right ankle and foot
CPT/HCPCS: 78315; A9503

== ENCOUNTER → 2022-06-13 11:01 | Outpatient (CLI) | payer MEDICARE, OTHER, SELFPAY ==
[2022-06-13 12:43] LABS: COVID19 -Nasal RAPID Negative (Negative)
== END ==
PROVIDERS: PCP Internal Medicine; Visit Provider Surgery
DX: Z20.822 Contact with and (suspected) exposure to COVID-19 (principal); Z01.812 Encounter for preprocedural laboratory examination
CPT/HCPCS: 87635; C9803

== ENCOUNTER 2022-06-14 10:44 | Day surgery (SDC) | payer MEDICARE, OTHER, SELFPAY ==
[2022-06-14 11:06] VITALS: BP 135/78; PULSE 70; RESP 16; TEMP 36.3; O2SAT 99; BMI 31.0
[2022-06-14] MEDS: LACTATED RINGERS 1,000 ML 200 ML IV (11:12)
--- NOTE | 2022-06-14 12:51 | PM.HP.1 ---
History of Present Illness History of Present Illness Date Patient Seen: 06/14/22 Time Patient Seen: 12:51 Chief complaint: SDC Narrative: The patient presents for colorectal screening. she has a history of rectal cancer 5 years ago status post radiation chemo and resection. On further history denies any recent gastrointestinal symptoms. Patient History Medical History Colorectal cancer DJD (degenerative joint disease) Gastroesophageal reflux disease Hepatic steatosis History of migraine Hypothyroid Overweight Prediabetes Serous adenocarcinoma of uterus, stage 1 Uterine cancer Surgical History History of appendectomy History of cholecystectomy History of colonoscopy History of partial colectomy (~04/08/09) Status post right breast lumpectomy (~1996) Status post total abdominal hysterectomy and bilateral salpingo-oophorectomy ([facility]OHANN-BSO) Family & Social History Family History Mother Cancer Grandmother Cancer Social History: household members none Tobacco & Substance use: Smoking Status Never smoker alcohol intake current alcohol intake frequency holiday/special occasion Substance Use Type does not use Meds Home Medications and Allergies Home Medications Medication Instructions Recorded Confirmed Type ascorbic acid (vitamin C) 1,000 mg 1,000 mg PO DAILY 03/01/18 06/14/22 History tablet (Vitamin C) calcium carbonate 600 mg calcium 600 mg PO QAM 03/01/18 06/14/22 History (1,500 mg) tablet (Calcium) diphenoxylate-atropine 2.5 1 cap PO PRN PRN Diarrhea 03/01/18 06/14/22 History mg-0.025 mg tablet loperamide 2 mg capsule 2 mg PO QAM PRN Diarrhea 03/01/18 06/14/22 History nabumetone 500 mg tablet 500 - 1,000 mg PO DAILY 03/01/18 06/14/22 History pyridoxine (vitamin B6) 250 mg 250 mg PO DAILY 03/01/18 06/14/22 History tablet (Vitamin B-6) vitamin B complex 1 tab PO DAILY 03/01/18 06/14/22 History omeprazole 20 mg tablet,delayed 20 mg PO DAILY 03/13/18 06/14/22 History release dicyclomine 10 mg capsule 10 mg PO TID PRN cramping 05/16/18 06/14/22 History levothyroxine 100 mcg tablet 1 tab PO DAILY 05/16/18 06/14/22 History multivitamin 1 tab PO DAILY 08/08/18 06/14/22 History clotrimazole 1 % topical solution 1 applic topical BID 08/13/20 06/14/22 History sertraline 50 mg tablet 50 mg PO DAILY 08/13/20 06/14/22 History zolpidem 10 mg tablet 10 mg PO BEDTIME 08/13/20 06/14/22 History gabapentin 100 mg capsule 300 mg PO TID 12/28/21 06/14/22 History Allergies Allergy/AdvReac Type Severity Reaction Status Date / Time adhesive tape Allergy Mild Hives Verified 06/14/22 11:02 nystatin Allergy Unknown hives Verified 06/14/22 11:02 sesame oil AdvReac Mild Hives Verified 06/14/22 11:02 sesame seed AdvReac Mild Hives Verified 06/14/22 11:02 Exam Vital Signs (past 8 hours): - 06/14/22 11:06 Temperature 97.3 F L Pulse Rate 70 Respiratory Rate 16 Blood Pressure 135/78 Pulse Oximetry 99 Oxygen Delivery Method Room Air Oxygen Delivery Method Room Air Narrative Exam Narrative: General elderly woman alert oriented no acute distress Abdomen soft nontender nondistended Assessment & Plan Assessment & Plan narrative: The patient requires colorectal screening and colonoscopy is recommended. Technical details were discussed. Risks, benefits, alternatives explained. Risks including but not limited to myocardial infarction, aspiration, bleeding, pain, missed lesion, incomplete examination, need for further radiographic studies, colonic perforation, and need for major abdominal surgery were discussed. All questions were answered to their satisfaction, and they are in agreement with this plan. Time Spent With Patient Critical Care time: I spent a total of [] minutes of critical care time on this patient's care today; this time is exclusive of procedural time.
--- NOTE | 2022-06-14 12:53 | P.OP.COLON_ITS ---
Operative Date/Time/Diagnoses Date of procedure: 06/14/22 Time of procedure: 12:53 Pre-op diagnosis: History rectal cancer Post-op diagnosis: same Procedure & Clinicians Study performed: Colonoscopy Same procedure as scheduled: Yes Indications: History of rectal cancer Surgeon: Gómez Lim Procedure Notes Procedure in detail: The history and physical was performed/updated and the patient is ASA class is 2. The procedure was discussed in detail with the patient. Potential risks complications including infection, bleeding, missed diagnosis, perforation, need for surgery, and were explained. Their questions were answered and inf ormed consent was obtained. Patient was brought to the procedure room and placed standard monitoring equipment. The patient's vital signs were monitored continuously throughout the entire procedure. Prior to starting time-out was performed. The patient was placed in the left lateral recumbent position. Procedural sedation was administered by anesthesia. Examination began with a thorough inspection of the perianal area there was no evidence of fissures, fistulae, external hemorrhoids or cutaneous malignancy. The colonoscopy scope was then placed into the anal canal and was advanced to the cecum, which was identified by the ileocecal valve, the appendiceal orifice and the confluence of the taenia. The scope was then slowly withdrawn examining colon thoroughly in all directions, irrigating it of any residual stool. FINDINGS 1. Normal colonic anastomosis status post low anterior resection 2. No masses or polyps The patient tolerated the procedure well. They will be discharged once criteria are met. The prep was of fair quality. The withdrawl time was 8 minutes. Specimen(s): none sent Complications: none Impression: Normal colonoscopy Post-procedure Recommendations: Colonoscopy in 3 years Disposition: same day surgery
[2022-06-14 13:19] VITALS: BP 113/69; PULSE 55; RESP 14; TEMP 36.2; O2SAT 99
[2022-06-14 13:26] VITALS: BP 128/65; PULSE 53; RESP 12; O2SAT 98
[2022-06-14 13:29] VITALS: BP 131/79; PULSE 54; RESP 14; O2SAT 98
[2022-06-14 13:39] VITALS: BP 137/83; PULSE 51; RESP 16; TEMP 36.4; O2SAT 99
== END 2022-06-14 14:09 | disposition home or self-care (01) ==
PROVIDERS: PCP Internal Medicine; Referring Provider Surgery; Visit Provider Surgery
PROC: 0DJD8ZZ Inspection of Lower Intestinal Tract, Via Natural or Artificial Opening Endoscopic (ICD-10-PCS; CPT 45378; principal; 2022-06-14 12:15)
DX: Z12.11 Encounter for screening for malignant neoplasm of colon (principal); Z85.048 Personal history of other malignant neoplasm of rectum, rectosigmoid junction, and anus; E03.9 Hypothyroidism, unspecified; K21.9 Gastro-esophageal reflux disease without esophagitis
CPT/HCPCS: G0105; J2704; J3010

== ENCOUNTER → 2023-11-28 10:29 | Outpatient (CLI) | payer MEDICARE, OTHER, SELFPAY | LOC: WC 10:35 | PROVIDERS: Family Provider Internal Medicine; PCP Internal Medicine; Referring Provider Internal Medicine; Visit Provider Surgery | DX: E11.628 Type 2 diabetes mellitus with other skin complications (principal); L84 Corns and callosities | CPT/HCPCS: 99203; 99213 ==